=== PATIENT | female | born 1965 | race Caucasian/White ===

== ENCOUNTER → 2018-08-06 | Outpatient (CLI) | payer BC ==
--- NOTE | 2018-08-07 09:26 | US ---
EXAMINATION TYPE: US abdomen limited DATE OF EXAM: 08/06/2018 COMPARISON: NONE CLINICAL HISTORY: R10.11 RUQ pain. RUQ pain x 1 week. Loss of appetite. EXAM MEASUREMENTS: Liver Length: 16.6 cm Gallbladder Wall: 0.45 cm CBD: 0.74 cm Right Kidney: 11.6 x 5.0 x 4.8 cm Pancreas: Limited by bowel gas Liver: Cystic areas seen throughout, largest measurin.6 x 3.7 x 3.5 cm. Gallbladder: Thickened wall. Enlarged. Internal echoes seen suggestive of sludge. Hyperechoic area w ith shadowing seen measurin.9 x 2.3 x 1.9 cm. Evidence for sonographic Roa's sign: Yes CBD: appears dilated Right Kidney: Anechoic area seen measurin.5 x 1.1 x 1.4 cm. IMPRESSION: 1. Multiple hepatic cysts. 2. Gallbladder demonstrates a thickened wall with internal echoes suggestive of sludge. Hyperechoic a princess with shadowing measuring 2.9 cm likely represents a gallstone. Correlate for cholecystitis. 3. The common bile duct is enlarged correlate for distal CBD anomaly, stone or obstruction. 4. Right renal cyst.
== END | disposition home or self-care (01) ==
LOC: RADUSMAIN 17:59
PROVIDERS: ATTEND Internal Medicine
DX: K76.89 Other specified diseases of liver (principal); K82.8 Other specified diseases of gallbladder; N28.1 Cyst of kidney, acquired
CPT/HCPCS: 76705

== ENCOUNTER 2018-08-07 10:27 | Inpatient (IN) | payer BC ==
[2018-08-07] MEDS ORDERED: SODIUM CHLORIDE 0.9% 1,000 ML IV STA ×2 (11:11)
[2018-08-07] MEDS ORDERED: PANTOPRAZOLE 40 MG/10 ML VIAL IVP STA (11:11)
[2018-08-07] MEDS ORDERED: MORPHINE SULFATE 4 MG/ML SYRINGE IV STA (11:11)
[2018-08-07] MEDS: ONDANSETRON 4 MG/2 ML VIAL IVP STA (11:39)
[2018-08-07 11:57] LABS: Basophils # (A) 0.1 k/uL (0-0.2); Basophils % (A) 0 %; Eosinophils # (A) 0.1 k/uL (0-0.7); Eosinophils % (A) 1 %; HCT 38.3 % (34.0-46.0); Lymphocytes # (A) 1.4 k/uL (1.0-4.8); Lymphocytes % (A) 11 %; MCH 29.1 pg (25.0-35.0); MCHC 33.9 g/dL (31.0-37.0); MCV 85.9 fL (80.0-100.0); Mean Platelet Volume 7.5; Monocytes # (A) 0.4 k/uL (0-1.0); Monocytes % (A) 3 %; Neutrophils % (A) 84 %; Platelet Count 429 k/uL (150-450); RBC 4.46 m/uL (3.80-5.40); WBC 13.2 k/uL (3.8-10.6)
[2018-08-07 12:07] LABS: INR 0.9 (<1.2); Partial Thromboplastin Time 24.7 sec (22.0-30.0); Prothrombin Time 9.6 sec (9.0-12.0)
[2018-08-07 12:08] LABS: ALT 16 U/L (9-52); AST 18 U/L (14-36); Albumin 4.3 g/dL (3.5-5.0); Alkaline Phosphatase 88 U/L (38-126); Amylase 55 U/L (30-110); Anion Gap 13 mmol/L; Blood Urea Nitrogen 12 mg/dL (7-17); Calcium 9.6 mg/dL (8.4-10.2); Carbon Dioxide 19 mmol/L (22-30); Chloride 107 mmol/L (98-107); Glucose 93 mg/dL (74-99); Lipase 27 U/L (23-300); Sodium 139 mmol/L (137-145); Total Bilirubin 0.5 mg/dL (0.2-1.3); Total Protein 7.4 g/dL (6.3-8.2)
--- NOTE | 2018-08-07 12:51 | ED ---
Abdominal Pain HPI - General Chief Complaint: Abdominal Pain Stated Complaint: abd pain Time Seen by Provider: 08/07/18 11:10 Source: patient, RN notes reviewed, old records reviewed Mode of arrival: ambulatory Limitations: no limitations - History of Present Illness Initial Comments: This is a 53-year-old female the ER for evaluation. Patient presenting with persistent right upper quadrant epigastric abdominal pain. No prior surgical history no history of gallbladder disease or issues. Patient has been twice in life with 2 live births. Patient denies worsening symptoms with eating. Symptoms that is been progressive. Ultrasound yesterday which prompted her to come to ER today for abnormal findings. No travel history no sick conta cts no fevers. Pain is intermittent episodic, currently right upper quadrant and tender MD Complaint: abdominal pain (Right upper quadrant) -: days(s), week(s) Location: RUQ Radiation: RUQ Migration to: RUQ Severity: moderate Severity scale (1-10): 5 Quality: cramping, stabbing, aching Consistency: intermittent Improves With: nothing Worsens With: nothing Associated Symptoms: nausea, vomiting, anorexia - Related Data Home Medications Medication Instructions Recorded Confirmed Albuterol Sulfate [Proair Hfa] 1 - 2 puff INHALATION RT-Q6H PRN 08/07/18 08/07/18 Aranelle 1 tab PO HS 08/07/18 08/07/18 Fluticasone/Salmeterol [Advair Hfa 2 puff INHALATION RT-BID 08/07/18 08/07/18 115-21 Mcg Inhaler] Multivit-Min/Iron/Folic/Lutein 1 tab PO DAILY 08/07/18 08/07/18 [Centrum Silver Women Tablet] Allergies Allergy/AdvReac Type Severity Reaction Status Date / Time propoxyphene Allergy Unknown Verified 08/07/18 11:26 [From Darzioncet-N 100] Review of Systems ROS Statement: Those systems with pertinent positive or pertinent negative responses have been documented in the HPI. ROS Other: All systems not noted in ROS Statement are negative. Past Medical History Past Medical History: Asthma History of Any Multi-Drug Resistant Organisms: None Reported Past Surgical History: No Surgical Hx Reported Past Psychological History: Anxiety Smoking Status: Never smoker Past Alcohol Use History: None Reported Past Drug Use History: None Reported General Exam - General Exam Comments Initial Comments: Positive right upper quadrant tenderness on exam Limitations: no limitations General appearance: alert, in no apparent distress Head exam: Present: atraumatic, normocephalic, normal inspection Eye exam: Present: normal appearance, PERRL, EOMI. Absent: scleral icterus, conjunctival injection, periorbital swelling ENT exam: Present: normal exam, mucous membranes moist Neck exam: Present: normal inspection. Absent: tenderness, meningismus, lymphadenopathy Respiratory exam: Present: normal lung sounds bilaterally. Absent: respiratory distress, wheezes, rales, rhonchi, stridor Cardiovascular Exam: Present: regular rate, normal rhythm, normal heart sounds. Absent: systolic murmur, diastolic murmur, rubs, gallop, clicks GI/Abdominal exam: Present: soft, tenderness (Right upper quadrant), normal bowel sounds. Absent: distended, guarding, rebound, rigid Extremities exam: Present: normal inspection, full ROM, normal capillary refill. Absent: tenderness, pedal edema, joint swelling, calf tenderness Back exam: Present: normal inspection Neurological exam: Present: alert, oriented X3, CN II-XII intact Psychiatric exam: Present: normal affect, normal mood Skin exam: Present: warm, dry, intact, normal color. Absent: rash Course Vital Signs 08/07/18 08/07/18 10:38 12:42 Temperature 98.1 F Pulse Rate 91 78 Respiratory 16 18 Rate Blood Pressure 135/97 155/78 O2 Sat by Pulse 98 99 Oximetry - Reevaluation(s) Reevaluation #1: 08/07/18 12:59 Medical record reviewed Reevaluation #2: 08/07/18 12:[address] Sheppard who is okay for admission Medical Decision Making - Medical Decision Making 51 female the ER with positive cholecystitis and outpatient ultrasound. Patient will be admitted for evaluation by surgery - Lab Data Result diagrams: 08/07/18 11:30 08/07/18 11:30 Lab Results 08/07/18 08/07/18 08/07/18 Range/Units 11:30 11:30 11:30 WBC 13.2 H (3.8-10.6) k/uL RBC 4.46 (3.80-5.40) m/uL Hgb 13.0 (11.4-16.0) gm/dL Hct 38.3 (34.0-46.0) % MCV 85.9 (80.0-100.0) fL MCH 29.1 (25.0-35.0) pg MCHC 33.9 (31.0-37.0) g/dL RDW 14.0 (11.5-15.5) % Plt Count 429 (150-450) k/uL Neutrophils % 84 % Lymphocytes % 11 % Monocytes % 3 % Eosinophils % 1 % Basophils % 0 % Neutrophils # 11.0 H (1.3-7.7) k/uL Lymphocytes # 1.4 (1.0-4.8) k/uL Monocytes # 0.4 (0-1.0) k/uL Eosinophils # 0.1 (0-0.7) k/uL Basophils # 0.1 (0-0.2) k/uL PT (9.0-12.0) sec INR (<1.2) APTT (22.0-30.0) sec Sodium 139 (137-145) mmol/L Potassium 4.0 (3.5-5.1) mmol/L Chloride 107 (98-107) mmol/L Carbon Dioxide 19 L (22-30) mmol/L Anion Gap 13 mmol/L BUN 12 (7-17) mg/dL Creatinine 0.62 (0.52-1.04) mg/dL Est GFR (CKD-EPI)AfAm >90 (>60 ml/min/1.73 sqM) Est GFR (CKD-EPI)NonAf >90 (>60 ml/min/1.73 sqM) Glucose 93 (74-99) mg/dL Plasma Lactic Acid Farhat 0.9 (0.7-2.0) mmol/L Calcium 9.6 (8.4-10.2) mg/dL Total Bilirubin 0.5 (0.2-1.3) mg/dL AST 18 (14-36) U/L ALT 16 (9-52) U/L Alkaline Phosphatase 88 (38-126) U/L Total Protein 7.4 (6.3-8.2) g/dL Albumin 4.3 (3.5-5.0) g/dL Amylase 55 (30-110) U/L Lipase 27 (23-300) U/L 08/07/18 Range/Units 11:30 WBC (3.8-10.6) k/uL RBC (3.80-5.40) m/uL Hgb (11.4-16.0) gm/dL Hct (34.0-46.0) % MCV (80.0-100.0) fL MCH (25.0-35.0) pg MCHC (31.0-37.0) g/dL RDW (11.5-15.5) % Plt Count (150-450) k/uL Neutrophils % % Lymphocytes % % Monocytes % % Eosinophils % % Basophils % % Neutrophils # (1.3-7.7) k/uL Lymphocytes # (1.0-4.8) k/uL Monocytes # (0-1.0) k/uL Eosinophils # (0-0.7) k/uL Basophils # (0-0.2) k/uL PT 9.6 (9.0-12.0) sec INR 0.9 (<1.2) APTT 24.7 (22.0-30.0) sec Sodium (137-145) mmol/L Potassium (3.5-5.1) mmol/L Chloride (98-107) mmol/L Carbon Dioxide (22-30) mmol/L Anion Gap mmol/L BUN (7-17) mg/dL Creatinine (0.52-1.04) mg/dL Est GFR (CKD-EPI)AfAm (>60 ml/min/1.73 sqM) Est GFR (CKD-EPI)NonAf (>60 ml/min/1.73 sqM) Glucose (74-99) mg/dL Plasma Lactic Acid Farhat (0.7-2.0) mmol/L Calcium (8.4-10.2) mg/dL Total Bilirubin (0.2-1.3) mg/dL AST (14-36) U/L ALT (9-52) U/L Alkaline Phosphatase (38-126) U/L Total Protein (6.3-8.2) g/dL Albumin (3.5-5.0) g/dL Amylase (30-110) U/L Lipase (23-300) U/L - Radiology Data Radiology results: report reviewed (Ultrasound on an outpatient basis is reviewed showing positive cholecystitis with distended wall and fluid) Disposition Clinical Impression: Abdominal pain, Acute cholecystitis Disposition: ADMITTED IP TO THIS HOSP Condition: Good Is patient prescribed a controlled substance at d/c from ED?: No Referrals: Daren Barr MD [Primary Care Provider] - 1-2 days
[2018-08-07] MEDS ORDERED: ONDANSETRON 4 MG/2 ML VIAL IVP PRN (12:57)
[2018-08-07] MEDS ORDERED: metroNIDAZOLE-NS PMX 500 MG in SALINE 1 100ML.BAG IVPB STA (13:05)
[2018-08-07 14:05] VITALS: BMI 25.0
--- NOTE | 2018-08-07 15:48 | P.HPIM ---
<[place] - Last Filed: 08/07/18 15:42> History of Present Illness H&P Date: 08/07/18 Chief Complaint: abdominal pain CHIEF COMPLAINT: abdominal pain HISTORY OF PRESENT ILLNESS: 53-year-old female who underwent abdominal US yesterday evening and was notified by her PCP this morning of the results and advised to the come to the emergency room. Patient reports she has been having right upper quadrant pain x 1 week. She denies nausea or vomiting. Denies constipation or diarrhea. Denies loss of appetite. Denies fever or chills. She states she thought she pulled a muscle initially but the pain was not improving and that is when her PCP ordered abdominal US. Patient is examined in the emergency room. Patient currently denies abdominal pain. She is anxious and tearful. Patient reports they have a vacation planned to [place] and are leaving Sunday morning. PAST MEDICAL HISTORY: See list. PAST SURGICAL HISTORY: See list. SOCIAL HISTORY: No illicit drug use. REVIEW OF SYSTEMS: CONSTITUTIONAL: Denies fever or chills. HEENT: Denies blurred vision, vision changes, or eye pain. Denies hemoptysis CARDIOVASCULAR: Denies chest pain or pressure. RESPIRATORY: No shortness of breath. GASTROINTESTINAL: Refer to HPI for pertinent findings HEMATOLOGIC: Denies bleeding disorders. GENITOURINARY: Denies any blood in urine. SKIN: Denies pruitis. Denies rash. PHYSICAL EXAM: VITAL SIGNS: Reviewed. GENERAL: Well-developed in no acute distress. HEENT: No sclera icterus. Extraocular movements grossly intact. Moist buccal mucosa. Head is atraumatic, normocephalic. ABDOMEN: Soft. Nondistended. Minimal tenderness upon palpation of right upper quadrant. NEUROLOGIC: Alert and oriented. Cranial nerves II through XII grossly intact. LABORATORY DATA: WBC 13.2. Hemoglobin 13.0. Bilirubin 0.5. AST 18. ALT 16. Alkaline phosphatase 88. Amylase 55. Lipase 27. IMAGING: Per radiologist's dictation: 1. Abdominal ultrasound: Multiple hepatic cysts. Gallbladder demonstrates a thickened wall with internal echoes suggestive of sludge. Hyperechoic area with shadowing measuring 2.9 centimeters likely represents a gallstone. Correlate fo r cholecystitis. Common bile duct is enlarged. Correlate for distal common bile duct anomaly, stone, or obstruction. Positive sonographic Roa sign. ASSESSMENT: 1. Right upper quadrant abdominal pain 2. Acute cholecystitis 3. Leukocytosis PLAN: NPO after midnight. Continue IV fluids. Continue antibiotics Patient tentatively scheduled for robotic cholecystectomy tomorrow with Dr. Matos Nurse practitioner note has been reviewed by physician. Signing provider agrees with the documented findings, assessment, and plan of care. Past Medical History Past Medical History: Asthma, Osteoarthritis (OA) Additional Past Medical History / Comment(s): Bronchitis, arthritis R hand. History of Any Multi-Drug Resistant Organisms: None Reported Past Surgical History: Breast Surgery Additional Past Surgical History / Comment(s): L breast cystectomy Past Anesthesia/Blood Transfusion Reactions: No Reported Reaction Smoking Status: Never smoker - Past Family History Mother Family Medical History: No Reported History Additional Family Medical History / Comment(s): Mother is 74 yrs old and healthy Father Family Medical History: No Reported History Additional Family Medical History / Comment(s): Father is healthy Medications and Allergies Home Medications Medication Instructions Recorded Confirmed Type Albuterol Sulfate [Proair Hfa] 1 - 2 puff INHALATION RT-Q6H PRN 08/07/18 08/07/18 History Aranelle 1 tab PO HS 08/07/18 08/07/18 History Fluticasone/Salmeterol [Advair Hfa 2 puff INHALATION RT-BID 08/07/18 08/07/18 History 115-21 Mcg Inhaler] Multivit-Min/Iron/Folic/Lutein 1 tab PO DAILY 08/07/18 08/07/18 History [Centrum Silver Women Tablet] Allergies Allergy/AdvReac Type Severity Reaction Status Date / Time propoxyphene Allergy Unknown Verified 08/07/18 14:01 [From Darcet-N 100] Physical Exam Vitals: Vital Signs Temp Pulse Resp BP Pulse Ox 08/07/18 14:21 98.7 F 84 16 150/99 98 08/07/18 12:42 78 18 155/78 99 08/07/18 10:38 98.1 F 91 16 135/97 98 Intake and Output 08/07/18 08/07/18 08/07/18 06:59 14:59 22:59 Other: Weight 70.307 kg Results CBC & Chem 7: 08/07/18 11:30 08/07/18 11:30 Labs: Abnormal Lab Results - Last 24 Hours (Table) 08/07/18 08/07/18 Range/Units 11:30 11:30 WBC 13.2 H (3.8-10.6) k/uL Neutrophils # 11.0 H (1.3-7.7) k/uL Carbon Dioxide 19 L (22-30) mmol/L Thrombosis Risk Factor Assmnt - Choose All That Apply Any of the Below Risk Factors Present?: Yes Each Factor Represents 1 point: Age 41-60 years Other Risk Factors: No Other congenital or acquired thrombophilia - If yes, enter type in comment: No Thrombosis Risk Factor Assessment Total Risk Factor Score: 1 Thrombosis Risk Factor Assessment Level: Low Risk <Merary Matos - Last Filed: 08/08/18 15:08> Physical Exam Vitals: Vital Signs Temp Pulse Pulse Resp BP BP Pulse Ox 08/07/18 15:48 97.7 F 89 16 155/102 99 08/07/18 15:30 98.1 F 81 20 150/89 98 08/07/18 14:21 98.7 F 84 16 150/99 98 08/07/18 12:42 78 18 155/78 99 08/07/18 10:38 98.1 F 91 16 135/97 98 Intake and Output 08/07/18 08/07/18 08/07/18 06:59 14:59 22:59 Other: Weight 70.307 kg Results CBC & Chem 7: 08/08/18 07:54 08/08/18 07:54 Labs: Abnormal Lab Results - Last 24 Hours (Table) 08/07/18 08/07/18 Range/Units 11:30 11:30 WBC 13.2 H (3.8-10.6) k/uL Neutrophils # 11.0 H (1.3-7.7) k/uL Carbon Dioxide 19 L (22-30) mmol/L Assessment and Plan (1) Right upper quadrant abdominal pain Current Visit: Yes Status: Acute Code(s): R10.11 - RIGHT UPPER QUADRANT PAIN SNOMED Code(s): 706110293 (2) Anxiety Current Visit: Yes Status: Acute Code(s): F41.9 - ANXIETY DISORDER, UNSPECIFIED SNOMED Code(s): 50286192 (3) Acute cholecystitis Current Visit: Yes Status: Acute Code(s): K81.0 - ACUTE CHOLECYSTITIS SNOMED Code(s): 13859441 (4) Leukocytosis Current Visit: Yes Status: Acute Code(s): D72.829 - ELEVATED WHITE BLOOD CELL COUNT, UNSPECIFIED SNOMED Code(s): 773591646 Plan: Patient seen and evaluated. She is at increased risk of DVTs with prolonged travel via car. Benefits and risks of surgery reviewed. She reports 1 week long history of acute cholecystitis. Patient advised to proceed with cholecystectomy prior to travel as [place] facility. REVIEW OF ORGAN SYSTEMS: CONSTITUTIONAL: Denies any fever or chills. Denies recent weight loss or w eight gain. HEENT: Denies any trouble with vision, hearing or nosebleeds. No difficulty swallowing. LYMPHATIC: The patient denies any lumps and bumps around the neck. ENDOCRINE: Denies any thyroid disorders. Denies any blood sugar glucose intolerance. RESPIRATORY: Denies pneumonia. Denies any troubles with breathing or dyspnea on exertion. CARDIOVASCULAR: Denies any chest pain, palpitations, or recent heart attacks. GASTROINTESTINAL: Reports 1 week long right upper quadrant abdominal pain. No reports of blood in stools. GENITOURINARY: Denies any blood in urine or increased urinary frequency. MUSCULOSKELETAL: Denies any back pain, stiffness, joint arthritis. NEUROLOGIC: Denies any numbness or tingling along the distal extremities. No seizure disorders or headaches. PSYCHIATRIC: Denies depression or suidical ideation. History of anxiety. HEMATOLOGIC: Denies any abnormal bleeding or bruising. BREASTS: Denies any breast lumps, pain or nipple discharge. GENERAL: Well developed and in no acute distress. Pleasant. HEENT: No sclera icterus. Extraocular movements grossly intact. Moist buccal mucosa. Head is atraumatic, normocephalic. Hears conversational speech. No nasal drainage. NECK: Supple without lymphadenopathy. No JV distention. CHEST: Non-labored respirations and equal bilateral excursions. CARDIOVASCULAR: Regular rate and rhythm. Palpable 2+ radial pulses. ABDOMEN: Soft, nondistended. Tender along the right upper quadrant. MUSCULOSKELETAL: No clubbing, cyanosis or edema. NEUROLOGIC: No focal or lateralizing signs. Cranial nerves II-12 grossly intact PSYCH: Appropriate affect. Alert and oriented to person, place and time. SKIN: Good skin turgor. Well perfused. STUDIES: I personally reviewed her ultrasound with a very thickened gallbladder wall consistent with her history. PLAN: 1. IV antibiotics recommended with IV fluid hydration for dehydration. 2. Scopolamine patch for nausea 3. Repeat blood work in the morning advised. All questions addressed and reviewed.
[2018-08-07] MEDS: PIPERACILLIN-TAZOBACTAM 3.375 GM in SODIUM CHLORIDE 0.9% 100 ML IVPB SCH ×2 (16:14→23:00)
[2018-08-07] MEDS: MORPHINE SULFATE 4 MG/ML SYRINGE IVP PRN ×2 (19:03→22:58)
[2018-08-07] MEDS ORDERED: SODIUM CHLORIDE 0.9% 1,000 ML IV ONE (19:33)
[2018-08-07] MEDS: SCOPOLAMINE 1.5MG/72HR PATCH TRANSDERM SCH (21:11)
[2018-08-07] MEDS: metroNIDAZOLE-NS PMX 500 MG in SALINE 1 100ML.BAG IVPB SCH (21:13)
[2018-08-08] MEDS: MORPHINE SULFATE 4 MG/ML SYRINGE IVP PRN (02:08)
[2018-08-08] MEDS: metroNIDAZOLE-NS PMX 500 MG in SALINE 1 100ML.BAG IVPB SCH ×3 (04:10→22:35)
[2018-08-08] MEDS: PANTOPRAZOLE 40 MG/10 ML VIAL IVP SCH (07:31)
[2018-08-08] MEDS: PIPERACILLIN-TAZOBACTAM 3.375 GM in SODIUM CHLORIDE 0.9% 100 ML IVPB SCH ×2 (07:32→18:26)
[2018-08-08 08:33] LABS: ALT 20 U/L (9-52); AST 18 U/L (14-36); Albumin 3.8 g/dL (3.5-5.0); Alkaline Phosphatase 81 U/L (38-126); Anion Gap 9 mmol/L; Blood Urea Nitrogen 4 mg/dL (7-17); Calcium 8.3 mg/dL (8.4-10.2); Carbon Dioxide 23 mmol/L (22-30); Chloride 105 mmol/L (98-107); Glucose 109 mg/dL (74-99); Potassium 3.8 mmol/L (3.5-5.1); Sodium 137 mmol/L (137-145); Total Bilirubin 0.7 mg/dL (0.2-1.3); Total Protein 6.6 g/dL (6.3-8.2)
[2018-08-08 08:43] LABS: Basophils % (A) 0 %; Eosinophils # (A) 0.1 k/uL (0-0.7); Eosinophils % (A) 1 %; HCT 37.8 % (34.0-46.0); HGB 12.2 gm/dL (11.4-16.0); Lymphocytes # (A) 0.9 k/uL (1.0-4.8); Lymphocytes % (A) 8 %; MCH 28.4 pg (25.0-35.0); MCHC 32.2 g/dL (31.0-37.0); MCV 88.2 fL (80.0-100.0); Mean Platelet Volume 7.4; Monocytes # (A) 0.3 k/uL (0-1.0); Monocytes % (A) 3 %; Neutrophils # (A) 9.8 k/uL (1.3-7.7); Neutrophils % (A) 87 %; Platelet Count 400 k/uL (150-450); RBC 4.28 m/uL (3.80-5.40); RDW 14.4 % (11.5-15.5); WBC 11.2 k/uL (3.8-10.6)
--- NOTE | 2018-08-08 10:54 | P.HPADDEND ---
H&P Addendum H&P Addendum Date: 08/08/18 Benefits and risks described for robotic cholecystectomy reviewed.
[2018-08-08] MEDS ORDERED: INDOCYANINE GREEN 25 MG VIAL IV STA (10:56)
[2018-08-08] MEDS ORDERED: ceFAZolin IN SWFI 2 GM/20 ML SYRINGE IVP ONE (10:56)
[2018-08-08] MEDS ORDERED: IV FLUID CONTINUATION 1,000 ML IV ONE (14:51)
[2018-08-08] MEDS ORDERED: DEXAMETHASONE SOD PHOS (MDV) 100 MG/10 ML VIAL IVP ONE (15:02)
[2018-08-08] MEDS ORDERED: HEPARIN SODIUM,PORCINE 5,000 UNIT/ML 1 ML VIAL SQ ONE ×2 (15:02→15:15)
[2018-08-08] MEDS: SCOPOLAMINE 1.5MG/72HR PATCH TRANSDERM SCH (15:02)
[2018-08-08] MEDS: ONDANSETRON 4 MG/2 ML VIAL IVP STA (15:02)
[2018-08-08] MEDS ORDERED: MIDAZOLAM (PF) 2 MG/2 ML VIAL IVP ONE ×2 (15:06→15:15)
[2018-08-08] MEDS ORDERED: MIDAZOLAM 2 MG/2 ML VIAL ONE (15:13)
[2018-08-08] MEDS ORDERED: GLYCOPYRROLATE 0.2 MG/ML 2 ML VIAL ONE (15:13)
[2018-08-08] MEDS ORDERED: LIDOCAINE 1% INJ 10MG/ML (20 ML MDV) ONE (15:13)
[2018-08-08] MEDS ORDERED: ROCURONIUM BROMIDE 10 MG/ML 10 ML VIAL IV ONE (15:13)
[2018-08-08] MEDS ORDERED: KETOROLAC 30 MG/ML 1 ML VIAL ONE (15:13)
[2018-08-08] MEDS ORDERED: NEOSTIGMINE 1 MG/ML 10 ML VIAL ONE (15:13)
[2018-08-08] MEDS ORDERED: PROPOFOL 10 MG/ML 20 ML VIAL IV ONE (15:13)
[2018-08-08] MEDS ORDERED: HYDROmorphone (PF) 1 MG/ML ONE (15:13)
[2018-08-08] MEDS ORDERED: SUCCINYLCHOLINE CHLORIDE 100 MG/5 ML SYR IV ONE (15:13)
[2018-08-08] MEDS ORDERED: fentaNYL (PF) 50 MCG/ML 2 ML AMP ONE (15:13)
[2018-08-08] MEDS ORDERED: ESMOLOL 100 MG/10 ML VIAL ONE (15:13)
[2018-08-08] MEDS ORDERED: BUPIVACAINE (PF) 0.5% 30 ML VIAL SQ ONE (15:45)
[2018-08-08] MEDS ORDERED: NALOXONE 0.4 MG/ML 1 ML VIAL IV PRN (17:20)
[2018-08-08] MEDS ORDERED: METOCLOPRAMIDE 5 MG/ML 2 ML VIAL IVP PRN (17:20)
--- NOTE | 2018-08-08 17:34 | P.OP ---
Date of Procedure: 08/08/18 Description of Procedure: SURGEON: JAMILA ELLIS MD PREOPERATIVE DIAGNOSES: 1. Right upper quadrant abdominal pain 2. Acute cholecystitis 3. Leukocytosis 4. Anxiety 5. Asthma POSTOPERATIVE DIAGNOSES: 1. Right upper quadrant abdominal pain 2. Acute cholecystitis with cystic duct obstruction 3. Leukocytosis 4. Anxiety 5. Asthma OPERATION: Robotic-assisted da Kendy Xi laparoscopic cholecystectomy, multiport with FIREFLY ESTIMATED BLOOD LOSS: 40 mL. SPECIMENS REMOVED: Gallbladder. COMPLICATIONS: None. OPERATIVE FINDINGS: 1. Acute cholecystitis with moderately distended gallbladder and thickened gallbladder wall 2. Gallbladder more than 3 times normal size INDICATIONS: The patient is a 53-year-old female who presents with subacute cholelcystitis. Surgical intervention with a laparoscopic cholecystectomy was described at length including injury to the biliary tree, bleeding, infection, need for further surgery. Informed consent was obtained. Robotic assisted laparoscopic approach was described. Benefits and risks of the procedure including but not limited to bleeding, infection, injury to the biliary tree was described. Informed consent was obtained. DESCRIPTION OF PROCEDURE: Patient was brought to the operating room, placed in supine position. After general induction, the abdomen had been prepped and draped in standard sterile fashion. The robotic da Kendy XI system was primed. After a timeout protocol was performed, the patient had been prepped and draped in standard sterile fashion. The patient was injected with indocyanine green. A 5 mm 0 degrees laparoscopic trocar entry was performed along the left upper quadrant. The abdomen insufflated to 15 mmHg pressure which was tolerated well. Diagnostic laparoscopy demonstrated no injury to bowel viscera or mesentery. The liver surface was unremarkable. Next, two 8 mm robotic ports were placed along the right upper abdomen. The camera 8-mm port was maintained along the epigastrium. Another 8 mm port was placed along the left upper abdominal wall after exchanging the 5 mm port. Please note that the ports were placed at least 10 to 15 cm away from the target anatomy of the gallbladder. The robot was docked along the left lateral abdomen. The patient was repositioned in reverse Trendelenburg position. Using a grasper for arm 3, a grasper for arm 4, including hook cautery for arm 1, the robotic system was docked and primed as described. Instruments were interchanged by the visitor services information assistant including hook cautery, Bovie cautery and clip appliers. I had sat at the console. The gallbladder was moderately distended with extremely large over 3 cm gallstone palpated along the infundibulum. The gallbladder wall was also moderately thickened. Adhesions were found of omentum to the body including infundibulum of the gallbladder which were divided with Bovie cautery. The gallbladder fundus was retracted over the dome of the liver. Initial attention was brought to the infundibulum which was gently retracted in the inferior lateral approach. Using a grasper, the cystic duct including the cystic artery was carefully skeletonized. FIREFLY was used to identify the cystic artery and cystic structures. Large PLASTIC clips were used throughout the entire case. Using a clip clinical review specialist 2 clips were placed proximally, and 1 clip was placed distally along the cystic duct and then cauterized with the cautery. Again care was taken to avoid any injury to the biliary tree as the common bile duct was clearly visualized during this portion of dissection. Next, the cystic artery was similarly clipped and cauterized. Electro-Bovie cautery was used to remove the gallbladder from the hepatic fossa. Hemostasis was checked and found to be adequate. No iatrogenic decompression of the gallbladder occurred. The robot was undocked. I re-scrubbed into the case. Using a 10 mm Endo Catch bag via the left upper quadrant incision, the specimen was removed from the abdominal cavity after widening the incision to 3 cm. All pneumoperitoneum instruments were evacuated from the abdominal cavity. The incisions were reapproximated using 4-0 Monocryl in an interrupted subcuticular fashion. Fascial defect of the left upper quadrant was oversewn using 0 Vicryl and Bernardo Castle. Please note along the trocar sites, local anesthetic was placed as a field block prior to insertion of all instruments. Liquid glue was applied to the skin. OptiFoam was placed along left upper quadrant incision. At the end of the procedure needle, sponge, and instrument count had been verified correct by the manager surgical. The patient was transferred to postanesthesia care unit in stable condition. Intraoperative films were shared with the patient's family who were very pleased with the level of care. Console time 51 minutes
[2018-08-08 17:38] VITALS: RESP 16
[2018-08-08] MEDS: ACETAMINOPHEN TAB 325 MG TAB PO SCH (18:27)
[2018-08-08] MEDS: SYMBICORT 160-4.5 MCG INHALER INHALATION SCH (22:03)
[2018-08-09] MEDS: PIPERACILLIN-TAZOBACTAM 3.375 GM in SODIUM CHLORIDE 0.9% 100 ML IVPB SCH ×2 (00:07→07:54)
[2018-08-09] MEDS: ACETAMINOPHEN TAB 325 MG TAB PO SCH ×2 (00:07→04:46)
[2018-08-09 02:59] VITALS: TEMP 98.3
[2018-08-09] MEDS: metroNIDAZOLE-NS PMX 500 MG in SALINE 1 100ML.BAG IVPB SCH (04:47)
[2018-08-09 07:11] VITALS: BP 145/90; PULSE 92
[2018-08-09] MEDS: SYMBICORT 160-4.5 MCG INHALER INHALATION SCH (07:14)
[2018-08-09 07:41] LABS: Basophils % (A) 0 %; Eosinophils % (A) 0 %; HCT 35.8 % (34.0-46.0); HGB 11.7 gm/dL (11.4-16.0); Lymphocytes # (A) 1.2 k/uL (1.0-4.8); Lymphocytes % (A) 9 %; MCH 28.5 pg (25.0-35.0); MCHC 32.7 g/dL (31.0-37.0); MCV 87.1 fL (80.0-100.0); Mean Platelet Volume 7.1; Monocytes # (A) 0.6 k/uL (0-1.0); Monocytes % (A) 4 %; Neutrophils # (A) 11.6 k/uL (1.3-7.7); Neutrophils % (A) 86 %; Platelet Count 442 k/uL (150-450); RBC 4.11 m/uL (3.80-5.40); RDW 13.9 % (11.5-15.5); WBC 13.5 k/uL (3.8-10.6)
[2018-08-09] MEDS: PANTOPRAZOLE 40 MG/10 ML VIAL IVP SCH (07:54)
[2018-08-09 07:57] LABS: ALT 26 U/L (9-52); AST 35 U/L (14-36); Albumin 3.5 g/dL (3.5-5.0); Alkaline Phosphatase 70 U/L (38-126); Anion Gap 10 mmol/L; Blood Urea Nitrogen 7 mg/dL (7-17); Calcium 8.4 mg/dL (8.4-10.2); Carbon Dioxide 22 mmol/L (22-30); Chloride 106 mmol/L (98-107); Glucose 113 mg/dL (74-99); Potassium 4.1 mmol/L (3.5-5.1); Sodium 138 mmol/L (137-145); Total Bilirubin 0.4 mg/dL (0.2-1.3); Total Protein 6.2 g/dL (6.3-8.2)
[2018-08-09] MEDS ORDERED: HEPARIN SODIUM,PORCINE 5,000 UNIT/ML 1 ML VIAL SQ SCH (09:00)
--- NOTE | 2018-08-09 11:01 | P.DS ---
Providers Date of admission: 08/07/18 13:09 Expected date of discharge: 08/09/18 Attending physician: Merary Matos Primary care physician: Daren Barr - Discharge Diagnosis(es) (1) Right upper quadrant abdominal pain Status: Acute (2) Anxiety Status: Acute (3) Acute cholecystitis Status: Acute (4) Leukocytosis Status: Acute Hospital Course: CHIEF COMPLAINT: Acute cholecystitis HISTORY OF PRESENT ILLNESS: The patient is a 53-year-old female postop day 1 status post cholecystectomy for acute hydrops cholecystitis. She is tolerating diet. No atypical chest pain. She only has mild incisional pain. ROS: No reports of nausea and vomiting. No bowel movements. No fevers or chills. No new chest pain. No productive sputum PHYSICAL EXAM: VITAL SIGNS: Reviewed CONSTITUTIONAL: Well developed and in no acute distress. EYES: Conjuctivae without sclera icterus. Extraocular movements grossly intact. HEAD, EARS, NOSE, THROAT: Moist buccal mucosa. Head is atraumatic, normocephalic. Hears conversational speech. No nasal drainage. NECK: Supple. No thyroidomegaly. RESPIRATORY: Non-labored respirations and equal bilateral excursions. CARDIOVASCULAR: Palpable 2+ radial pulses. Regular rate. Regular rhythm. ABDOMEN: Incisions clean dry and intact. Soft. No peritonitis. Minimal tenderness left upper quadrant. MUSCULOSKELETAL: No gross deformity of the lower extremities noted. No clubbing. No cyanosis. SKIN: Good skin turgor. Well perfused. NEUROLOGIC: Cranial nerves I through XII grossly intact. No focal or lateralizing signs. PSYCH: Appropriate affect. Alert and oriented to person, place and time. CLINCAL LABS: White blood cell count 13,000. LFTs normal. ASSESSMENT: 1. Right upper quadrant abdominal pain 2. Acute cholecystitis with cystic duct obstruction 3. Leukocytosis 4. Anxiety 5. Asthma PLAN: 1. Overall patient did very well from her cholecystectomy. 2. Increased risk for DVTs were described as she is about to travel. DVT prevention was also reviewed in detail. 3. Antibiotics prescribed for history of prolonged acute cholecystitis. 4. Follow-up in the office in 2 weeks upon her return from her vacation. Vital Signs Temp 98.3 F 08/09/18 07:01 Pulse 92 08/09/18 07:01 Resp 16 08/09/18 01:30 BP 145/90 05/24/19 07:01 Pulse Ox 93 L 08/09/18 07:01 Intake & Output 08/08/18 08/09/18 08/09/18 18:59 06:59 18:59 Intake Total 700 450 Output Total 40 Balance 660 450 Weight 70.307 kg Intake: IV 700 Intake, IV Titration 450 Amount Piperacillin-Tazobactam 3 100 .375 gm In Sodium Chloride 0.9% 100 ml @ 25 mls/hr IVPB Q8HR ROMANA Rx# :[id number] Sodium Chloride 0.9% 1, 350 000 ml @ 100 mls/hr IV . Q10H STA Rx#:[id number] Output: Estimated Blood Loss 40 Other: # Voids 2 3 Laboratory Last Values WBC 13.5 k/uL (3.8-10.6) H 08/09/18 06:54 RBC 4.11 m/uL (3.80-5.40) 08/09/18 06:54 Hgb 11.7 gm/dL (11.4-16.0) 08/09/18 06:54 Hct 35.8 % (34.0-46.0) 08/09/18 06:54 MCV 87.1 fL (80.0-100.0) 08/09/18 06:54 MCH 28.5 pg (25.0-35.0) 08/09/18 06:54 MCHC 32.7 g/dL (31.0-37.0) 08/09/18 06:54 RDW 13.9 % (11.5-15.5) 08/09/18 06:54 Plt Count 442 k/uL (150-450) 08/09/18 06:54 Neutrophils % 86 % 08/09/18 06:54 Lymphocytes % 9 % 08/09/18 06:54 Monocytes % 4 % 08/09/18 06:54 Eosinophils % 0 % 08/09/18 06:54 Basophils % 0 % 08/09/18 06:54 Neutrophils # 11.6 k/uL (1.3-7.7) H 08/09/18 06:54 Lymphocytes # 1.2 k/uL (1.0-4.8) 08/09/18 06:54 Monocytes # 0.6 k/uL (0-1.0) 08/09/18 06:54 Eosinophils # 0.0 k/uL (0-0.7) 08/09/18 06:54 Basophils # 0.0 k/uL (0-0.2) 08/09/18 06:54 PT 9.6 sec (9.0-12.0) 08/07/18 11:30 INR 0.9 (<1.2) 08/07/18 11:30 APTT 24.7 sec (22.0-30.0) 08/07/18 11:30 Sodium 138 mmol/L (137-145) 08/09/18 06:54 Potassium 4.1 mmol/L (3.5-5.1) 08/09/18 06:54 Chloride 106 mmol/L (98-107) 08/09/18 06:54 Carbon Dioxide 22 mmol/L (22-30) 08/09/18 06:54 Anion Gap 10 mmol/L 08/09/18 06:54 BUN 7 mg/dL (7-17) 08/09/18 06:54 Creatinine 0.66 mg/dL (0.52-1.04) 08/09/18 06:54 Est GFR (CKD-EPI)AfAm >90 (>60 ml/min/1.73 sqM) 08/09/18 06:54 Est GFR (CKD-EPI)NonAf >90 (>60 ml/min/1.73 sqM) 08/09/18 06:54 Glucose 113 mg/dL (74-99) H 08/09/18 06:54 Plasma Lactic Acid Farhat 0.9 mmol/L (0.7-2.0) 08/07/18 11:30 Calcium 8.4 mg/dL (8.4-10.2) 08/09/18 06:54 Total Bilirubin 0.4 mg/dL (0.2-1.3) 08/09/18 06:54 AST 35 U/L (14-36) 08/09/18 06:54 ALT 26 U/L (9-52) 08/09/18 06:54 Alkaline Phosphatase 70 U/L (38-126) 08/09/18 06:54 Total Protein 6.2 g/dL (6.3-8.2) L 08/09/18 06:54 Albumin 3.5 g/dL (3.5-5.0) 08/09/18 06:54 Amylase 55 U/L (30-110) 08/07/18 11:30 Lipase 27 U/L (23-300) 08/07/18 11:30 HCG, Qual Not Detected 08/08/18 07:54 Pertinent Studies: Ultrasound of the abdomen confirms acute cholecystitis Procedures: OPERATION: Robotic-assisted da Kendy Xi laparoscopic cholecystectomy, multiport with FIREFLY ESTIMATED BLOOD LOSS: 40 mL. SPECIMENS REMOVED: Gallbladder. COMPLICATIONS: None. Patient Condition at Discharge: Good Plan - Discharge Summary Discharge Rx Participant: No New Discharge Prescriptions: New Amoxic-Pot Clav 875-125Mg [Augmentin 875-125] 1 tab PO BID 3 Days #6 tab Fluconazole [Diflucan] 200 mg PO DAILY #5 tab Ibuprofen [Motrin] 600 mg PO Q8HR PRN #30 tab PRN Reason: Pain Continue Fluticasone/Salmeterol [Advair Hfa 115-21 Mcg Inhaler] 2 puff INHALATION RT- BID Albuterol Sulfate [Proair Hfa] 1 - 2 puff INHALATION RT-Q6H PRN PRN Reason: Shortness Of Breath Aranelle 1 tab PO HS Multivit-Min/Iron/Folic/Lutein [Centrum Silver Women Tablet] 1 tab PO DAILY Discharge Medication List Albuterol Sulfate [Proair Hfa] 1 - 2 puff INHALATION RT-Q6H PRN 08/07/18 [History] Aranelle 1 tab PO HS 08/07/18 [History] Fluticasone/Salmeterol [Advair Hfa 115-21 Mcg Inhaler] 2 puff INHALATION RT-BID 08/07/18 [History] Multivit-Min/Iron/Folic/Lutein [Centrum Silver Women Tablet] 1 tab PO DAILY 08/07/18 [History] Amoxic-Pot Clav 875-125Mg [Augmentin 875-125] 1 tab PO BID 3 Days #6 tab 08/09/18 [Rx] Fluconazole [Diflucan] 200 mg PO DAILY #5 tab 08/09/18 [Rx] Ibuprofen [Motrin] 600 mg PO Q8HR PRN #30 tab 08/09/18 [Rx] Follow up Appointment(s)/Referral(s): Merary Matos MD [STAFF PHYSICIAN] - 08/20/18 9:00 am Daren Barr MD [Primary Care Provider] - 08/20/18 3:00 pm Patient Instructions/Handouts: Ibuprofen (By mouth), Amoxicillin/Clavulanate Potassium (By mouth), Fluconazole (By mouth), Low Fat Diet (GEN), Abdominal Binder (DC), Deep Vein Thrombosis Prevention (DC), Laparoscopic Cholecystectomy (DC) Activity/Diet/Wound Care/Special Instructions: May shower. No bath tub soaks. Remove dressing 08/14/2018. Abdominal binder for comfort. To prevent DVTs, walk frequently. Stay well-hydrated. Discharge Disposition: HOME SELF-CARE
== END 2018-08-09 11:30 | disposition home or self-care (01) | DRG 419 ==
LOC: EC 10:27 → 6PED 13:09 → 4SSUR 14:08
PROVIDERS: ADMIT Surgery Plastic and Reconstructive Surgery; ATTEND Surgery Plastic and Reconstructive Surgery
PROC: 0FT44ZZ Resection of Gallbladder, Percutaneous Endoscopic Approach (ICD-10-PCS; principal; 2018-08-07)
PROC: 8E0W4CZ Robotic Assisted Procedure of Trunk Region, Percutaneous Endoscopic Approach (ICD-10-PCS; 2018-08-07)
DX: K80.01 Calculus of gallbladder with acute cholecystitis with obstruction (principal); K82.8 Other specified diseases of gallbladder; F41.9 Anxiety disorder, unspecified; M19.041 Primary osteoarthritis, right hand; J45.909 Unspecified asthma, uncomplicated; Z88.5 Allergy status to narcotic agent; Z79.51 Long term (current) use of inhaled steroids
CPT/HCPCS: 36415; 76705; 80053; 82150; 83605; 83690; 84703; 85025; 85610; 85730; 88304; 93005; 94640; 96361; 96365; 96367; 96375; 99285

== ENCOUNTER → 2021-01-28 | Outpatient (CLI) | payer BC ==
--- NOTE | 2021-01-28 10:11 | USB ---
EXAMINATION TYPE: US breast complete RT DATE OF EXAM: 01/28/2021 COMPARISON: NONE CLINICAL HISTORY: N63.10 MASS OF RT BREAST. Findings: The entire right breast was scanned with ultrasound in all 4 quadrants and the retroareolar region an d axilla. Ductal ectasia is noted in the retroareolar region without definite intraductal lesion. In the right breast at 7:00, there is a 1.0 x 1.1 x 0.9 cm irregular hypoechoic lesion which is ill-d efined and suspicious on this examination, however, patient reports hematoma occurring on recent mamm ogram which is not available for review. IMPRESSION: In the right breast at 7:00, there is a 1.0 x 1.1 x 0.9 cm irregular hypoechoic lesion which is ill-d efined and suspicious on this examination, however, patient reports hematoma occurring on recent mamm ogram which is not available for review. Recommendation: Obtain prior mammograms. If prior mammograms cannot be obtained, bilateral diagnostic mammogram is recommended. BI-RADS 0, incomplete.
== END | disposition home or self-care (01) ==
LOC: RADUSWWP 08:24
PROVIDERS: ATTEND Student in an Organized Health Care Education/Training Program
DX: N64.59 Other signs and symptoms in breast (principal)